=== PATIENT | female | born 1995 | race Caucasian/White ===

== ENCOUNTER → 2018-09-10 | Outpatient (CLI) | payer OTHER ==
[2018-09-10 15:09] LABS: BASO # 0.1 (0.02-0.10); EOS # 0.6 (0.04-0.40); EOS % 6.9 % (1.0-5.0); HEMATOCRIT 44.2 % (37.0-47.0); HEMOGLOBIN 14.1 g/dL (12.5-16.0); LYMPH# 2.5 (1.50-4.00); MEAN CELL VOLUME 87 fl (78-100); MEAN CORPUSCULAR HEMOGLOBIN 28 pg (27-31); MEAN CORPUSCULAR HGB CONC 32 g/dL (33-37); MEAN PLATELET VOLUME 10.2 fl (7.4-10.4); NEU # 4.7 (1.40-6.50); PLATELET COUNT 280 K/mm3 (130-400); RED BLOOD COUNT 5.07 M/mm3 (4.10-5.30); RED CELL DISTRIBUTION WIDTH 13.6 % (11.5-14.5); WHITE BLOOD COUNT 8.8 K/mm3 (4.8-10.8)
== END ==
LOC: LAB 14:29
PROVIDERS: Family Medicine
DX: Z02.89 Encounter for other administrative examinations (principal); J06.9 Acute upper respiratory infection, unspecified; M25.473 Effusion, unspecified ankle

== ENCOUNTER → 2018-09-11 | Outpatient (CLI) | payer OTHER | LOC: LAB 14:13 | DX: Z02.89 Encounter for other administrative examinations (principal); J06.9 Acute upper respiratory infection, unspecified; M25.473 Effusion, unspecified ankle ==